=== PATIENT | female | born 2000 | race Caucasian/White ===

== ENCOUNTER 2022-06-17 01:12 | Emergency (ER) | payer OTHER, MEDICAID, SELFPAY ==
[2022-06-17 01:22] VITALS: BP 122/78; PULSE 89; RESP 16; TEMP 36.1; O2SAT 99; BMI 26.5
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
[2022-06-17 01:34] VITALS: PULSE 110
[2022-06-17 01:37] VITALS: BP 122/78; PULSE 89; RESP 16; TEMP 36.1; O2SAT 99
[2022-06-17 01:43] VITALS: TEMP 36.1
[2022-06-17] MEDS: ACETAMINOPHEN 500 MG TABLET 1000 MG PO (01:43)
[2022-06-17 01:52] VITALS: BP 122/78; PULSE 89; RESP 16; TEMP 36.1
== END 2022-06-17 01:52 | disposition home or self-care (01) ==
LOC: ED 01:49
PROVIDERS: Emergency Provider Internal Medicine
DX: S80.12XA Contusion of left lower leg, initial encounter (principal); V43.12XA Car passenger injured in collision with other type car in nontraffic accident, initial encounter
CPT/HCPCS: 99282; 99283; A9270